=== PATIENT | female | born 1995 | race Caucasian/White ===

== ENCOUNTER 2017-11-07 16:37 | Emergency (ER) | payer MEDICAID, OTHER ==
[~2017-11-07] VITALS: Ht 152.4 cm; Wt 42.6 kg
[2017-11-07 16:39] VITALS: BP 117/76
== END 2017-11-07 18:40 | disposition home or self-care (01) ==
LOC: ER 16:38
DX: S06.0X9A Concussion with loss of consciousness of unspecified duration, initial encounter (principal); W22.8XXA Striking against or struck by other objects, initial encounter; Y93.89 Activity, other specified; Y99.8 Other external cause status; Y92.89 Other specified places as the place of occurrence of the external cause
CPT/HCPCS: 70450; 99284

== ENCOUNTER 2017-11-12 17:06 | Emergency (ER) | payer MEDICAID, OTHER ==
[~2017-11-12] VITALS: Ht 154.9 cm; Wt 42.3 kg
[2017-11-12 17:20] VITALS: BP 109/58
== END 2017-11-12 18:31 | disposition home or self-care (01) ==
LOC: ER 17:07
DX: F07.81 Postconcussional syndrome (principal)
CPT/HCPCS: 99281

== ENCOUNTER 2018-01-22 18:20 | Emergency (ER) | payer MEDICAID, OTHER ==
[~2018-01-22] VITALS: Ht 160 cm; Wt 45.5 kg
[2018-01-22 18:25] VITALS: BP 123/69
[2018-01-22] MEDS ORDERED: CefTRIAXone 250MG IM Kit w/LIDOcaine IM ONE (18:45)
[2018-01-22] MEDS ORDERED: DOXY100C43 PO (18:46)
[2018-01-22 18:52] LABS: CLARITY,URINE CLEAR (Clear); COLOR,URINE YELLOW (Yellow); GLUCOSE, URINE NEGATIVE (Neg); KETONES,URINE TRACE mg/dl (Neg); LEUKOCYTE ESTERASE ,URINE NEGATIVE (Neg); NITRITES, URINE NEGATIVE (Neg); OCCULT BLOOD,URINE NEGATIVE (Neg); PH,URINE 6.5 (4.8-8.0); PROTEIN,URINE NEGATIVE (Neg); URINE HCG NEGATIVE (NEG)
[2018-01-22 19:00] LABS: UA COLLECTION TYPE NON-SPECIFIED
== END 2018-01-22 19:10 | disposition home or self-care (01) ==
LOC: ER 18:21
DX: R30.0 Dysuria (principal); Z20.2 Contact with and (suspected) exposure to infections with a predominantly sexual mode of transmission; Z79.2 Long term (current) use of antibiotics
CPT/HCPCS: 36415; 81003; 81025; 87491; 87591; 96372; 99284; J0696

== ENCOUNTER 2018-02-12 13:45 | Emergency (ER) | payer MEDICAID ==
[~2018-02-12] VITALS: Ht 539.5 cm; Wt 45.2 kg
[2018-02-12 14:11] VITALS: BP 103/60
[2018-02-12] MEDS ORDERED: IBUP-1984 PO (15:53)
== END 2018-02-12 16:11 | disposition home or self-care (01) ==
LOC: ER 13:46
DX: S20.211A Contusion of right front wall of thorax, initial encounter (principal); F17.200 Nicotine dependence, unspecified, uncomplicated; Z79.899 Other long term (current) drug therapy; X58.XXXA Exposure to other specified factors, initial encounter; Y93.89 Activity, other specified; Y92.89 Other specified places as the place of occurrence of the external cause; Y99.8 Other external cause status
CPT/HCPCS: 71045; 99283

== ENCOUNTER 2018-02-24 08:49 | Emergency (ER) | payer MEDICAID ==
[~2018-02-24] VITALS: Ht 152.4 cm; Wt 45.5 kg
[~2018-02-24 08:49] MED LIST: IBUP-1984 PO
[2018-02-24] MEDS ORDERED: HYDR-565 PO (09:11)
[2018-02-24] MEDS ORDERED: AMOX500C2 PO (09:11)
[2018-02-24 09:29] VITALS: BP 109/99
== END 2018-02-24 09:31 | disposition home or self-care (01) ==
LOC: ER 08:50
DX: K02.9 Dental caries, unspecified (principal); Z98.890 Other specified postprocedural states; Z79.2 Long term (current) use of antibiotics; Z79.899 Other long term (current) drug therapy
CPT/HCPCS: 99283

== ENCOUNTER 2022-01-22 11:30 | Emergency (ER) | payer MEDICAID ==
[~2022-01-22] VITALS: Ht 152.4 cm; Wt 47.7 kg
--- NOTE | 2022-01-22 11:55 | NUR ---
+edema to L side of face/jaw. Difficult to swallow and fully open her mouth. +yellow discharge, posterior lower jaw on the L.
[2022-01-22] MEDS ORDERED: ibuprofen tablet 400 MG TABLET PO ONE (12:40)
[2022-01-22] MEDS ORDERED: ondansetron 4mg rapidly disintigrating tab PO ONE (12:40)
[2022-01-22] MEDS ORDERED: dexamethasone 4mg tablet PO ONE (13:15)
[2022-01-22 13:17] VITALS: BP 117/74
== END 2022-01-22 13:50 | disposition home or self-care (01) ==
LOC: ER 11:30
DX: K04.7 Periapical abscess without sinus (principal)
CPT/HCPCS: 41800; 99284; A6449

== ENCOUNTER 2022-08-06 11:51 | Emergency (ER) | payer MEDICAID ==
[~2022-08-06] VITALS: Ht 152.4 cm; Wt 50.0 kg
[2022-08-06 11:58] VITALS: BP 116/70
[2022-08-06] MEDS ORDERED: proparacaine 0.5% ophthalmic drops 15ml LEFTEYE ONE (13:10)
[2022-08-06] MEDS ORDERED: CIPR2.5D21 LEFTEYE (13:36)
== END 2022-08-06 14:11 | disposition home or self-care (01) ==
LOC: ER 11:51
DX: H57.12 Ocular pain, left eye (principal); H57.89 Other specified disorders of eye and adnexa
CPT/HCPCS: 99283; A6410

== ENCOUNTER 2022-11-29 08:23 | Emergency (ER) | payer MEDICAID ==
[~2022-11-29] VITALS: Ht 152.4 cm; Wt 52.6 kg
[2022-11-29 08:49] VITALS: BP 122/83
--- NOTE | 2022-11-29 09:04 | NUR ---
SANJEEV AT BEDSIDE FOR MED SCREENING
[2022-11-29] MEDS ORDERED: ketorolac trometh inj. 60 MG/2 ML VIAL IM ONE (09:20)
[2022-11-29] MEDS ORDERED: IBUP-1986 PO (09:26)
[2022-11-29] MEDS ORDERED: AMOX-117 PO (09:26)
== END 2022-11-29 09:42 | disposition home or self-care (01) ==
LOC: ER 08:23
DX: K04.7 Periapical abscess without sinus (principal); K08.89 Other specified disorders of teeth and supporting structures; Z98.890 Other specified postprocedural states
CPT/HCPCS: 96372; 99283; J1885

== ENCOUNTER 2022-12-20 07:59 | Emergency (ER) | payer MEDICAID ==
[~2022-12-20] VITALS: Ht 152.4 cm; Wt 50.0 kg
[~2022-12-20 07:59] MED LIST changes: -IBUP-1984 PO; +IBUP-1986 PO
[2022-12-20 08:13] VITALS: BP 116/70; PULSE 86; RESP 20; TEMP 99; O2SAT 98
[2022-12-20] MEDS ORDERED: proparacaine 0.5% ophthalmic drops 15ml RIGHTEYE ONE ×2 (09:10→09:20)
[2022-12-20] MEDS ORDERED: ciprofloxacin 0.3% 2.5ml ophthalmic solution RIGHTEYE ONE ×2 (09:10→09:20)
[2022-12-20] MEDS ORDERED: CIPR2.5D21 RIGHTEYE (09:41)
== END 2022-12-20 10:43 | disposition home or self-care (01) ==
LOC: ER 07:59
DX: S05.01XA Injury of conjunctiva and corneal abrasion without foreign body, right eye, initial encounter (principal); Z98.890 Other specified postprocedural states; Z79.899 Other long term (current) drug therapy; X58.XXXA Exposure to other specified factors, initial encounter; Y93.89 Activity, other specified; Y92.89 Other specified places as the place of occurrence of the external cause; Y99.8 Other external cause status
CPT/HCPCS: 99283

== ENCOUNTER 2024-03-29 22:44 | Emergency (ER) | payer MEDICAID ==
[~2024-03-29] VITALS: Ht 152.4 cm; Wt 51.5 kg
[2024-03-29 22:46] VITALS: BP 116/71; PULSE 91; TEMP 97.8; O2SAT 96
[2024-03-29] MEDS ORDERED: CIPR-202 PO (23:24)
[2024-03-29] MEDS ORDERED: METR-159 PO (23:24)
[2024-03-29] MEDS: ciprofloxacin 250mg tablet PO ONE (23:30)
[2024-03-29] MEDS: metroNIDAZOLE 500mg tablet PO ONE (23:30)
[2024-03-29] MEDS: ketorolac trometh 30MG/ML vial 30 MG/ML VIAL IM ONE (23:31)
[2024-03-29 23:43] VITALS: RESP 18
== END 2024-03-29 23:47 | disposition home or self-care (01) ==
LOC: ER 22:45
DX: K08.89 Other specified disorders of teeth and supporting structures (principal); Z88.6 Allergy status to analgesic agent
CPT/HCPCS: 96372; 99283; J1885

== ENCOUNTER 2024-06-06 08:38 | Emergency (ER) | payer MEDICAID ==
[~2024-06-06] VITALS: Ht 149.9 cm; Wt 49.6 kg
[2024-06-06] MEDS ORDERED: DIF150T PO (09:45)
[2024-06-06 10:23] VITALS: BP 130/78; PULSE 70; RESP 16; TEMP 98; O2SAT 98
== END 2024-06-06 10:30 | disposition home or self-care (01) ==
LOC: ER 08:40
DX: B35.9 Dermatophytosis, unspecified (principal); Z98.890 Other specified postprocedural states
CPT/HCPCS: 99283